=== PATIENT | female | born 1965 | race Caucasian/White ===

== ENCOUNTER → 2017-01-18 13:53 | Outpatient (CLI) | payer MEDICAID ==
[2015-05-21 05:57] VITALS: BMI 20.7
[~2017-01-18 13:53] MED LIST: AMBIEN5 MG PO; CALCIUM 500 + D1 TAB PO; CENTRUM COMPLE1 EACH PO; MOBIC7.5 MG PO; PAXIL20 MG PO
== END | disposition home or self-care (01) ==
LOC: D.MAMMO 11:15
DX: Z12.31 Encounter for screening mammogram for malignant neoplasm of breast (principal)

== ENCOUNTER → 2017-02-16 12:21 | Outpatient (CLI) | payer MEDICAID ==
[2015-05-21 05:57] VITALS: BMI 20.7
== END | disposition home or self-care (01) ==
LOC: D.MAMMO 12:00
DX: R92.8 Other abnormal and inconclusive findings on diagnostic imaging of breast (principal)